=== PATIENT | female | born 1940 | race Caucasian/White ===

== ENCOUNTER → 2016-11-30 | Outpatient (CLI) | payer MEDICARE ==
--- NOTE | 2016-11-30 14:05 | CT ---
EXAMINATION TYPE: CT lumbar spine wo con DATE OF EXAM: 11/30/2016 1:43 PM COMPARISON: Outside lumbar spine MRI August 19, 2015. HISTORY: Patient complains of chronic back pain with left leg weakness. CT DLP: 946 mGycm Automated exposure control for dose reduction was used. FINDINGS: There are 5 lumbar type vertebra identified. Osseous structures are demineralized. There is moderate to severe compression type fracture L1 level centrally redemonstrated. There is moderate height loss or compression fracture superior L3 endplate redemonstrated. There is mild height loss redemonstrated involving L2, L4, and L5 vertebra. There is persistent grade 2 anterolisthesis of L4 on L5 measured 9 mm on sagittal image 23. There is been vertebroplasty involving anterior L5 and S1 vertebra seen fe lt new from MRI. There is advanced disc space narrowing with vacuum disc phenomenon and sclerosis at L5-S1 level. There is multilevel vacuum disc phenomenon. There is moderate to advanced disc space austen rowing L4-L5 level redemonstrated. There is mild multilevel anterior and lateral spurring. There are posterior facet screws L4-L5 level bilaterally redemonstrated. Axial images at T11-T12 level show vacuum disc phenomenon and facet arthropathy. There is mild broad disc bulge seen. There is some mild effacement of anterior and posterior lateral thecal sac on axial image 8. Bilateral neural foramina are felt patent. Axial images at T12-L1 level show vacuum disc phenomenon and mild broad disc bulge mildly effacing an terior thecal sac. There are mild to moderate right greater than left facet degenerative changes with some effacement of posterior lateral thecal sac. Bilateral neural foramina remain patent. Axial images at the L1-L2 level show facet arthropathy effacing posterior lateral thecal sac. There i s mild broad disc bulge mildly effacing anterior thecal sac and causing asymmetric mild left greater than right neural foraminal narrowing. Axial images at the L2-L3 level show moderate broad disc bulge effacing anterior thecal sac. There is mild to moderate facet degenerative changes and ligament flavum hypertrophy effacing posterior later al thecal sac on axial image 34. There is mild to moderate left greater than right anterior-inferior neural foraminal narrowing at this level identified. Axial images at L3-L4 level show vacuum disc phenomenon. There is mild broad disc bulge effacing ante rior thecal sac. There is moderate to severe facet degenerative changes effacing posterior lateral th ecal sac on axial image 42. There is moderate to severe left and mild to moderate right-sided neural foraminal narrowing at this level identified. Axial images at the L4-L5 level show spondylolisthesis. There are bilateral laminectomy defects and s pinous process resection. Spinal canal is fairly well preserved. There is advanced left greater than right neural foraminal narrowing with effacement left L4 nerve strongly suspected on axial image 47 a nd sagittal image 29. Alignment is similar to prior MRI. There is advanced right-sided neural foramin al narrowing also seen with suspected effacement of right L4 nerve though slightly less prominent flo n left side. Axial images at L5-S1 level show facet arthropathy. Spinal canal is fairly well-maintained. There is relative patency of left neural foramina on axial image 55 and sagittal image 31. There is moderate t o severe right-sided neural foraminal narrowing due to broad disc bulging and marginal spurring seen best on sagittal image 20. There is moderate calcified atherosclerotic change of aorta. There is 3.5 cm simple appearing exophyt ic cyst lower pole level right kidney redemonstrated. There is suspected old fracture left posterior 11th rib on coronal image 42. IMPRESSION: DEMINERALIZATION WITH MULTILEVEL COMPRESSION TYPE FRACTURE DEFORMITIES REDEMONSTRATED. INTERVAL VERTE BROPLASTY L5 AND S1 LEVELS IS NOTED. THERE IS STABLE GRADE 2 ANTEROLISTHESIS L4 ON L5. POSTERIOR DECO MPRESSION IS PRESENT. THERE ARE MULTILEVEL DEGENERATIVE CHANGES IN THE LUMBAR SPINE DETAILED ABOVE .
== END | disposition home or self-care (01) ==
LOC: RADCTMAIN 13:12
PROVIDERS: ATTEND Internal Medicine
DX: M48.56XA Collapsed vertebra, not elsewhere classified, lumbar region, initial encounter for fracture (principal); M43.16 Spondylolisthesis, lumbar region; M51.36 Other intervertebral disc degeneration, lumbar region; M51.37 Other intervertebral disc degeneration, lumbosacral region; Z98.890 Other specified postprocedural states
CPT/HCPCS: 72131

== ENCOUNTER → 2017-01-01 | Outpatient (CLI) | payer MEDICARE ==
[2017-01-01 10:12] LABS: Partial Thromboplastin Time 22.5 sec (22.0-30.0); Prothrombin Time 10.1 sec (9.0-12.0)
[2017-01-01 10:16] LABS: CH 31.3; CHCM 32.6; HCT 39.5 % (34.0-46.0); HDW 2.23; MCH 31.7 pg (25.0-35.0); MCHC 32.8 g/dL (31.0-37.0); MCV 96.5 fL (80.0-100.0); Mean Platelet Volume 6.8; RBC 4.09 m/uL (3.80-5.40); RDW 13.7 % (11.5-15.5); WBC 8.6 k/uL (3.8-10.6)
[2017-01-01 10:17] LABS: ALT 29 U/L (9-52); AST 30 U/L (14-36); Alkaline Phosphatase 89 U/L (38-126); Anion Gap 11 mmol/L; Appearance,Urine Cloudy (Clear); Bacteria,Urine Occasional /hpf; Bilirubin,Urine Negative (Negative); Blood Urea Nitrogen 15 mg/dL (7-17); Calcium 10.3 mg/dL (8.4-10.2); Carbon Dioxide 25 mmol/L (22-30); Chloride 106 mmol/L (98-107); Glucose 92 mg/dL (74-99); Glucose,Urine (UA) Negative (Negative); Ketones,Urine Negative (Negative); Leukocyte Esterase,Urine Large (Negative); Mucus,Urine Rare /hpf; Nitrite,Urine Negative (Negative); Non-African American GFR(MDRD) >60 (>60 ml/min/1.73 sqM); PH, Urine 5.5 (5.0-8.0); Particle Count 6056; Potassium 4.2 mmol/L (3.5-5.1); Protein,Urine Negative (Negative); RBC,Urine 2 /hpf (0-5); Sodium 142 mmol/L (137-145); Specific Gravity,Urine 1.013 (1.001-1.035); Squamous Epithelial Cell,Urine 5 /hpf (0-4); Total Bilirubin 0.6 mg/dL (0.2-1.3); Total Protein 7.8 g/dL (6.3-8.2); UA Billing (MACRO vs. MICRO) MICRO; Urobilinogen,Urine <2.0 mg/dL (<2.0); WBC,Urine 66 /hpf (0-5)
== END | disposition home or self-care (01) ==
LOC: LABWHC1 09:03
PROVIDERS: ATTEND Orthopaedic Surgery
DX: Z01.812 Encounter for preprocedural laboratory examination (principal)
CPT/HCPCS: 80053; 81001; 85027; 85610; 85730; 86850; 86900; 86901; 87070

== ENCOUNTER → 2017-01-08 | Outpatient (CLI) | payer MEDICARE ==
--- NOTE | 2017-01-12 10:03 | ECHOF ---
Referral Reason:I48.2 chronic AFib MEASUREMENTS -------- HEIGHT: 154.9 cm WEIGHT: 62.1 kg BP: 134/62 IVSd: 1.2 cm (0.6 - 1.1) LVIDd: 3.3 cm (3.9 - 5.3) LVPWd: 1.1 cm (0.6 - 1.1) IVSs: 1.6 cm LVIDs: 2.1 cm LVPWs: 1.3 cm LAESV Index (A-L): 19.00 ml/m Ao Diam: 2.9 cm (2.0 - 3.7) AV Cusp: 1.9 cm (1.5 - 2.6) LA Diam: 3.2 cm (2.7 - 3.8) MV EXCURSION: 12.148 mm (> 18.000) MV EF SLOPE: 56 mm/s (70 - 150) EPSS: 0.2 cm MV E Max: 0.84 m/s MV DecT: 207 ms MV A Max: 0.92 m/s MV E/A Ratio: 0.91 RAP: 5.00 mmHg RVSP: 30.88 mmHg FINDINGS -------- Sinus rhythm. This was a technically good study. There is borderline concentric left ventricular hypertrophy. Overall left ventricular systolic function is normal with, an EF between 55 - 60 %. The right ventricle is normal in size and function. Normal LA size by volume 22+/-6 ml/m2. The right atrium is normal in size. The aortic valve is trileaflet, and appears structurally normal. No aortic stenosis or regurgitation. The mitral valve leaflets are mildly thickened. Mild mitral regurgitation is present. Mild tricuspid regurgitation present. The right ventricular systolic pressure, as measured by Doppler, is 30.88mmHg. Trace/mild (physiologic) pulmonic regurgitation. The aortic root size is normal. The pericardium is normal. CONCLUSIONS -------- 1. Sinus rhythm. 2. Mild mitral regurgitation is present. 3. Mild tricuspid regurgitation present. 4. The right ventricular systolic pressure, as measured by Doppler, is 30.88mmHg. 5. Trace/mild (physiologic) pulmonic regurgitation. 6. The aortic root size is normal. 7. The pericardium is normal. 8. This was a technically good study. 9. There is borderline concentric left ventricular hypertrophy. 10. Overall left ventricular systolic function is normal with, an EF between 55 - 60 %. 11. The right ventricle is normal in size and function. 12. Normal LA size by volume 22+/-6 ml/m2. 13. The right atrium is normal in size. 14. The aortic valve is trileaflet, and appears structurally normal. No aortic stenosis or regurgitation. 15. The mitral valve leaflets are mildly thickened. BIOLOGY INTERN: Sapna Ghosh RDCS
== END | disposition home or self-care (01) ==
LOC: RADECHMAIN 10:25
PROVIDERS: ATTEND Internal Medicine
DX: I08.1 Rheumatic disorders of both mitral and tricuspid valves (principal); I48.2 Chronic atrial fibrillation; I10 Essential (primary) hypertension
CPT/HCPCS: 93306

== ENCOUNTER 2017-01-12 08:12 | Inpatient (IN) | payer MEDICARE ==
--- NOTE | 2017-01-01 13:55 | CONS ---
DATE OF CONSULTATION: Consultation regarding preop medical evaluation. HISTORY OF PRESENT ILLNESS: This is a 76-year-old female who is scheduled to undergo left hip arthroplasty. The patient suffers from significant degenerative arthritis and is scheduled for the surgery after evaluation. The patient also has a history of previous lumbosacral spine surgery. The patient initially believed pain was from her back but the pain certainly is from the left hip. She pain with any movement of the left hip. Patient otherwise denies any other symptoms. She has no history of any bleeding disorder. No history of any recent infections. At today's evaluation, the patient is noted to be in paroxysmal atrial fibrillation. She has totally declined use of any anticoagulation. She will take aspirin subsequently. The patient's also had atrial fibrillation and she had at that time also refused for her to have any anticoagulation. The patient is a retired nurse. Past medical history significant for basically osteoarthritis and osteoporosis, was told at one time that she has hypothyroidism. She is not on any medication. She has no history of hypertension, diabetes, malignancy, lung disease, liver disease, kidney disease, ulcers, TB, hepatitis. No history of any rheumatic fever, myocardial infarction or CVA. PAST SURGICAL HISTORY: Significant for tonsillectomy, bilateral total knee arthroplasty. She has had an L4-5 surgery. She had right ulnar nerve entrapment release, right elbow surgery and bilateral cataracts. PERSONAL HISTORY: Never a smoker. No alcohol. VACCINATIONS: Pneumonia and flu vaccine in the past. Allergies: ( ) caused fluid retention. Medications include metoprolol 25 mg one-half daily. She is a believer of natural medications and takes Barley [place] and vitamins. SOCIAL HISTORY: Patient is , retired nurse. Exercises by doing ( ) 3 times a week. FAMILY MEDICAL HISTORY: Father at the age of 84. He had coronary artery disease. Mother at the age of 73. She had carcinoma of the breast and dementia. Her brother with 80 with history of Alzheimer's, a brother 77 with history of carcinoma prostate. Sister at age 62. She had oral cancer, a sister 64 with a history of CA of breast. The patient has one daughter 56, a son 55 with diabetes mellitus history and a son 53, in adequate health. REVIEW OF SYSTEMS: NEURO: Denies any headaches, dizziness. No double vision, blurred vision. No symptoms of TIA, syncope, seizures. PSYCH: No anxiety, depression. CARDIAC: Denies chest pain, angina, palpitations. RESPIRATORY: Denies shortness of breath, cough, hemoptysis. GI: Denies any nausea, vomiting, abdominal pain, diarrhea. : No symptoms of dysuria, hematuria, urgency, frequency. EXTREMITIES: Denies pain, edema. CONSTITUTIONAL: No fever or chills. HEMATOLOGIC: No anemia or bleeding disorder. SKIN: No rashes. No open sores. MUSCULOSKELETAL: Pain left hip. CONSTITUTIONAL: No fever, chills, weight gain weight loss. PHYSICAL EXAMINATION: Pleasant female in no distress. Vital signs reveal blood pressure 130/70, pulse rate of 85 per minute and regular, respirations 16, temperature 97.8. HEENT: Normocephalic. NECK: No JVD. Pupils reactive. Nostrils are clear. Oral cavity is moist, ears reveal no drainage. Neck reveals no JVD, carotid bruits, or thyromegaly. CHEST EXAMINATION: Clear to auscultation and percussion. CARDIAC: Intermittently irregular. ABDOMEN: Soft, no palpable masses. Bowel sounds normal. No organomegaly. No abdominal bruits. Breasts examination reveals no masses. No lumps. No tenderness. No axillary lymphadenopathy. EXTREMITIES: Trace edema right ankle. NEUROLOGICALLY: Awake, alert, oriented x3 with well-coordinated movements in both upper and lower extremities with decreased range of motion of the left hip. The biopsy evaluation is pending results. EKG reveals evidence of paroxysmal atrial fib on the EKG except significant baseline artifact. Echocardiogram is pending. ASSESSMENT: 1. Paroxysmal atrial fibrillation. 2. Degenerative arthritis. 3. Hyperlipidemia. PLAN: Continue present medical regimen. The patient's condition discussed with the patient. Prognosis remains guarded. The patient is stable to undergo the planned surgical procedure. Patient recommended not taking any nonsteroidals.
[2017-01-06 15:51] VITALS: BMI 26.7
[~2017-01-12 08:12] MED LIST: ACETAMINOPHEN TAB 500 MG TAB PO ONE; FAMOTIDINE 20 MG/2 ML VIAL IV PRN; HYDROmorphone 1 MG/ML 1 ML SYRINGE IVP PRN; LIDOCAINE 1% 20 ML VIAL (10MG/ML) FOR IV START INTRADERMA PRN; MELOXICAM 7.5 MG TAB PO ONE; MIDAZOLAM 2 MG/2 ML VIAL IV PRN; ONDANSETRON 4 MG/2 ML VIAL IVP PRN; ROPIVACAINE 246.25 MG, EPINEPHrine 0.5 MG, KETOROLAC 30 MG, cloNIDine HCL/PF 80 MCG, WA... MISCELLANE ONE; TRANEXAMIC ACID 1,000 MG in SODIUM CHLORIDE 0.9% 100 ML IVPB ONE; ceFAZolin 2 GM in SODIUM CHLORIDE 0.9% 100 ML IVPB ONE
[2017-01-12] MEDS ORDERED: LIDOCAINE 1% 20 ML VIAL (10MG/ML) FOR IV START INTRADERMA ONE (08:47)
[2017-01-12] MEDS: LACTATED RINGERS 1,000 ML IV SCH (08:47)
[2017-01-12] MEDS ORDERED: fentaNYL (PF) 50 MCG/ML 2 ML AMP ONE (10:19)
[2017-01-12] MEDS ORDERED: MIDAZOLAM 2 MG/2 ML VIAL ONE (10:19)
[2017-01-12] MEDS ORDERED: PROPOFOL 10 MG/ML 20 ML VIAL IV ONE (10:19)
[2017-01-12] MEDS ORDERED: HEPARIN SODIUM,PORCINE 10,000 UNIT/ML 1 ML VIAL ONE (10:19)
[2017-01-12] MEDS ORDERED: SODIUM CHLORIDE 0.9% 100 ML BAG ONE (10:19)
[2017-01-12] MEDS ORDERED: SODIUM CHLORIDE 0.9% IRRIG 1,000 ML BTL IRRIGATION ONE (10:19)
[2017-01-12] MEDS ORDERED: ePHEDrine 50 MG/ML 1 ML AMP ONE (10:19)
[2017-01-12] MEDS ORDERED: ceFAZolin 3,000 MG in SODIUM CHLORIDE 0.9% IRRIGATIO 3,000 ML IRRIGATION ONE (10:19)
[2017-01-12] MEDS ORDERED: TRANEXAMIC ACID 1,000 MG/10 ML VIAL ONE (10:19)
[2017-01-12] MEDS ORDERED: LACTATED RINGERS 1,000 ML IV ONE (11:37)
--- NOTE | 2017-01-12 12:11 | P.OP ---
Date of Procedure: 01/12/17 Preoperative Diagnosis: Severe osteoarthritis of the left hip Postoperative Diagnosis: Severe osteoarthritis of the left hip Procedure(s) Performed: Left total hip arthroplasty with a direct anterior approach Implants: Méndez and nephew Polarstem size 8 standard Méndez [employer] Nephew R3, 3 hole acetabular shell, 50 mm [employer]dez [employer]hew reflection 6.5 mm cancellus screw, 20 mm 2 [employer]dez [employer]hew R3, XLPE 20 acetabular liner [employer]dez [employer]hew Oxinium femoral head 32 m, +0 All components were press-fit. The articulation is ceramic on polyethylene. Anesthesia: spinal Surgeon: Jayme Celestin Infusion Nurse #1: Marly Faith Estimated Blood Loss (ml): 150 (64 mL returned with Cell Saver) Pathology: other (Femoral head) Condition: stable Disposition: PACU Indications for Procedure: After failure of conservative treatment we discussed the surgical and nonsurgical treatment options at length. Patient wishes to proceed with a total hip arthroplasty with a direct anterior approach. Complications specific to this procedure were discussed at length, including but not limited to infection, leg length discrepancy, dislocation, and nerve injury. Patient is aware of all these complications and informed consent was obtained Operative Findings: The operative findings are consistent with severe osteoarthritis of the left hip Description of Procedure: Patient was seen and evaluated in the preoperative area, consent was reviewed, and the surgical site was marked with a skin marker. Patient was then brought to the operating room and given prophylactic antibiotics intravenously. 1 g of Tranexamic acid was also given. A spinal anesthetic was administered by the anesthesia department. The patient was then placed on the [place] table with the bony prominences well-padded. The hip area was then prepped and draped in usual sterile fashion. A universal timeout was then performed, which confirmed the patient's name, surgical site, ALLERGIES, and procedure being performed. Next the incision site was located at 1 cm distal and 1 cm lateral to the anterior superior iliac spine. The skin and subcutaneous tissues were sharply incised. Incision was carefully dissected down to the fascia overlying the tensor fascia adrienne muscle. This fascia was then incised in line with the incision. Next, using blunt finger dissection, the tensor fascia adrienne muscle was dissected off its investing fascia. The muscle was then carefully retracted laterally with a cobra retractor over the lateral neck of the femur. Next, the circumflex vessels were identified and cauterized using the AquaMantis device. The anterior hip capsule was then exposed. The capsule was then opened and an inverted T fashion. Retention sutures were placed in the inferior arms of the capsule. Cobra retractors were then placed intracapsularly. The proximal femur was then visualized. The femoral neck was then osteotomized appropriate level above the lesser trochanter. Small amount of traction was placed with the [place] table. A small wedge of bone was then removed from the remaining femoral head. Next, using a corkscrew femoral head was easily removed from the acetabulum. On gross visual inspection, the femoral head had complete loss of articular cartilage in multiple periarticular osteophytes. Attention was then turned to the acetabulum. the acetabulum was exposed and any remaining labrum was excised. Sequential reaming of the acetabulum was performed using fluoroscopic guidance. When the appropriate size was reached, a trial was then placed. The position and fit of the trial was checked with fluoroscopy. The trial was then removed. Then, using fluoroscopic guidance, the final implant was impacted at 20 of anteversion and 40 of abduction, and fully seated in the acetabulum. 2 screws were then placed in the acetabulum. Again fluoroscopy was used to check position of the screws. Next, the liner was then impacted, with a 20 elevated liner located in the anterior superior quadrant. Component locking was confirmed. Attention was then directed to the femur. With the aid of the [place] table, the femur was externally rotated to approximately 130, extended, and abducted under the opposite leg. A side hook was then placed under the proximal femur, and the side hook elevator was used to elevate the proximal femur. Retractors were then placed. A capsular release was performed, as well as a release of the conjoined tendon, which afforded excellent visualization of the proximal femur. Next, a box osteotome was used to lateralize the proximal femur. A inspector handbag frames was then used to locate the femoral canal. Sequential broaching was then performed with appropriate size which afforded excellent fixation in the proximal femur. A trial was then placed with appropriate head and neck, and the hip was gently reduced with the aid of the [place] table. Fluoroscopy was then used to check position of the components, as well as to ensure equal leg lengths. The hip was then gently dislocated and the trials were then removed. Final implants were then impacted and the hip was again reduced. Final fluoroscopic x-rays confirmed that the components were in anatomic position, as well as equal leg lengths. The hip was also taken through range of motion, and found to be stable. The hip was then copiously irrigated with antibiotic solution with pulsatile lavage. The hip was then irrigated with Irrisept solution. The soft tissues were then injected with a ropivacaine solution, which consisted of 246.25 mg of ropivacaine, 0.5 mg of epinephrine, 30 mg of Toradol, 80 g of clonidine, and 48.45 mL of sterile water, for a total of 100 mL of fluid injected. A second dose of 1 g of Tranexamic acid was also given. the fascia was then closed with 2-0 strata fix suture. The subcutaneous tissue was closed with 3-0 Vicryl. The subcuticular tissue was closed with 3-0 strata fix suture. The skin was then closed with Dermabond tape. The patient was then transferred to the recovery room in stable condition. The office manager executive assistant BESS Casarez was required due to the complexity of surgery, and the need for skilled assistant softball coach for positioning, draping, exposure, retraction, and closure of the wound.
[2017-01-12] MEDS ORDERED: HYDROmorphone 1 MG/ML 1 ML SYRINGE IVP PRN ×3 (12:18)
[2017-01-12] MEDS ORDERED: DIAZEPAM 5 MG TAB PO PRN ×2 (12:18)
[2017-01-12] MEDS ORDERED: hydrOXYzine PAMOATE 25 MG CAP PO PRN (12:18)
[2017-01-12] MEDS ORDERED: ONDANSETRON 4 MG/2 ML VIAL IVP PRN (12:18)
[2017-01-12] MEDS ORDERED: HYDROcodone/APAP 5-325MG 1 EACH TAB PO PRN (12:18)
[2017-01-12] MEDS ORDERED: MAGNESIUM HYDROXIDE 2,400 MG/10 ML CUP PO PRN (12:18)
[2017-01-12] MEDS ORDERED: NALOXONE 0.4 MG/ML 1 ML VIAL IV PRN (12:18)
--- NOTE | 2017-01-12 12:40 | XR ---
EXAMINATION TYPE: XR Hip Limited LT DATE OF EXAM: 01/12/2017 COMPARISON: NONE HISTORY: Postoperative TECHNIQUE: AP single view FINDINGS: Left THR appears anatomic. Postsurgical soft tissue and proximal left femoral changes noted. There are no unexpected radiopaque foreign bodies. There is generalized osteopenia. IMPRESSION: Postoperative study.
--- NOTE | 2017-01-12 13:34 | FL ---
Fluoroscopy INDICATION: Pain FINDINGS: Fluoroscopy time: 42 seconds. Images obtained: 0. IMPRESSIONS: 1. Documentation of fluoroscopy.
[2017-01-12] MEDS: SODIUM CHLORIDE 0.9% 1,000 ML IV SCH (13:42)
--- NOTE | 2017-01-12 17:28 | P.PN ---
Subjective Principal diagnosis: Status post left total hip arthroplasty This 76-year-old female is status post left total hip arthroplasty today. He has significant degenerative arthritis. Patient is doing well. She is already ambulated with help. Denies any headaches dizziness or any nausea vomiting. Pain is very well controlled. She does have a history of paroxysmal atrial fibrillation recently noted on EKG. Echocardiogram revealed good left ventricle function and atria are normal. The patient had declined use of any anticoagulants except for aspirin. She does understand the risk of stroke. REVIEW OF SYSTEMS: Neuro: Denies any headaches dizziness. Psych: Denies anxiety depression feels oriented. Cardiac: Denies chest pain and angina palpitations. Respiratory: Denies shortness of breath cough. GI: Denies nausea vomiting or abdominal pain. No diarrhea or constipation, no bowel movement yet. : Denies dysuria hematuria. Extremities: Denies pain. No edema. Constitutional: No fever, chills. Objective - Vital Signs Vital signs: Vital Signs Temp 97.1 F L 01/12/17 13:15 Pulse 78 01/12/17 14:45 Resp 16 01/12/17 13:15 BP 91/47 01/12/17 14:45 Pulse Ox 99 01/12/17 13:15 Intake & Output 01/11/17 01/12/17 01/12/17 18:59 06:59 18:59 Intake Total 4500 Output Total 150 Balance 4350 Intake: IV 4500 Output: Estimated Blood Loss 150 Other: # Voids 0 PHYSICAL EXAMINATION: Cooperative, at present in no acute distress. HEENT: Neck supple. No JVD. Chest: Clear to auscultation percussion. Cardiac: Normal S1-S2 no gallops no murmur . Abdomen: Soft bowel sounds present. Extremities: No edema left hip has a dressing Neurologically: Awake, alert, oriented with well-coordinated movements upper extremities. Assessment and Plan Plan: ASSESSMENT: 1. History of paroxysmal atrial fibrillation. 2. Degenerative arthritis status post left hip arthroplasty. 3. Recent urinary tract infection. PLAN: Continue present medical regimen with metoprolol. Patient at present is clinically stable.
[2017-01-12] MEDS: ceFAZolin 2 GM in SODIUM CHLORIDE 0.9% 100 ML IVPB SCH ×2 (17:45→23:48)
[2017-01-12] MEDS: SENNOSIDES-DOCUSATE SODIUM 1 EACH TAB PO SCH (20:38)
[2017-01-12] MEDS: ASPIRIN 325 MG TAB PO SCH (20:38)
[2017-01-13 02:22] VITALS: RESP 16
[2017-01-13 07:38] LABS: Basophils % (A) 0 %; CH 31.9; CHCM 34.4; Eosinophils # (A) 0.1 k/uL (0-0.7); Eosinophils % (A) 1 %; HCT 26.8 % (34.0-46.0); HDW 2.26; Luc # (Auto) 0.16; Luc % (Auto) 2; Lymphocytes # (A) 0.9 k/uL (1.0-4.8); Lymphocytes % (A) 10 %; MCH 32.2 pg (25.0-35.0); MCHC 34.5 g/dL (31.0-37.0); MCV 93.3 fL (80.0-100.0); Monocytes # (A) 0.4 k/uL (0-1.0); Monocytes % (A) 5 %; Neutrophils # (A) 7.4 k/uL (1.3-7.7); Neutrophils % (A) 82 %; RBC 2.87 m/uL (3.80-5.40); RDW 12.9 % (11.5-15.5); WBC (Perox) 9.68
[2017-01-13 07:40] LABS: HGB 9.2 gm/dL (11.4-16.0)
[2017-01-13] MEDS: MELOXICAM 7.5 MG TAB PO SCH (07:45)
[2017-01-13] MEDS: ASPIRIN 325 MG TAB PO SCH ×2 (07:45→21:17)
[2017-01-13] MEDS: HYDROcodone/APAP 5-325MG 1 EACH TAB PO PRN ×3 (07:45→19:51)
[2017-01-13] MEDS: LACTATED RINGERS 1,000 ML IV SCH (08:14)
[2017-01-13] MEDS: SODIUM CHLORIDE 0.9% 1,000 ML IV SCH ×2 (08:14→22:15)
--- NOTE | 2017-01-13 13:12 | P.PN ---
Subjective Principal diagnosis: Status post total left hip arthoplasty This is a well-appearing 76 year old female who is status post total left hip arthroplasty. This is post operative day #1. Patient was seen and evaluated at bedside with Dr. Jayme Celestin. Patient states she has been up and walking and confirms that her pain is under control. Patient has no new complaints today. Objective - Vital Signs Vital signs: Vital Signs Temp 99.3 F 01/13/17 07:00 Pulse 89 01/13/17 07:00 Resp 16 01/13/17 07:00 BP 101/61 01/13/17 07:00 Pulse Ox 97 01/13/17 07:00 Intake & Output 01/12/17 01/13/17 01/13/17 18:59 06:59 18:59 Intake Total 4500 1140 240 Output Total 150 600 Balance 4350 540 240 Intake: IV 4500 Intake, IV Titration 890 Amount Sodium Chloride 0.9% 1, 690 000 ml @ 60 mls/hr IV . [id number] KATHERINE Rx#:[id number] ceFAZolin 2 gm In Sodium 200 Chloride 0.9% 100 ml @ 100 mls/hr IVPB Q8HR KATHERINE Rx#:[id number] Oral 250 240 Output: Urine 600 Estimated Blood Loss 150 Other: Voiding Method Toilet Toilet # Voids 0 3 2 - Exam Patient is in no acute distress and is alert and oriented x3. Vital signs are stable. Patient's incision with dressing intact and no drainage present. Calf is soft and nontender. Patient has full foot and ankle motion. Neurovascular status is intact. - Labs CBC & Chem 7: 01/13/17 06:32 Labs: Abnormal Lab Results - Last 24 Hours (Table) 01/13/17 Range/Units 06:32 RBC 2.87 L (3.80-5.40) m/uL Hgb 9.2 L D (11.4-16.0) gm/dL Hct 26.8 L (34.0-46.0) % Lymphocytes # 0.9 L (1.0-4.8) k/uL Assessment and Plan (1) Primary osteoarthritis of left hip Status: Acute (2) History of total left hip arthroplasty Status: Acute Plan: Continue routine postoperative care. Weightbearing as tolerated. Continue anticoagulation with aspirin. Likely discharge home tomorrow.
[2017-01-13] MEDS: METOPROLOL TARTRATE 25 MG TAB PO SCH (14:10)
[2017-01-13] MEDS: SENNOSIDES-DOCUSATE SODIUM 1 EACH TAB PO SCH (21:17)
[2017-01-14] MEDS: HYDROcodone/APAP 5-325MG 1 EACH TAB PO PRN ×3 (04:07→15:54)
[2017-01-14] MEDS: LACTATED RINGERS 1,000 ML IV SCH (05:02)
--- NOTE | 2017-01-14 06:51 | PN ---
CHIEF COMPLAINT: Re-evaluation. HISTORY OF PRESENT ILLNESS: A 76-year-old female status post left hip arthroplasty. She is doing relatively well. She feels well today. She does have some pain in the left hip compared to yesterday. The patient, however, has ambulated to the bathroom and back. REVIEW OF SYSTEMS: NEURO: Denies any headaches, dizziness. PSYCH: No anxiety, depression. CARDIAC: No chest pain, angina, palpitation. RESPIRATORY: No shortness of breath, cough. GI: No nausea, vomiting, abdominal pain. No bowel movement. : No symptoms of dysuria, hematuria. Does have some frequency. EXTREMITIES: Denies edema. Has pain in the left hip area at the site of surgery. CONSTITUTIONAL: No fever or chills. PHYSICAL EXAMINATION: Pleasant female in no distress. Vital signs revealed temperature 99.3, pulse 89, respirations 16, blood pressure 101/61. HEENT: Normocephalic. NECK: No JVD. Chest is clear to auscultation, pulse ox 97%. CARDIAC: Normal S1, S2 with no gallops, murmurs. ABDOMEN: Soft. Bowel sounds present. EXTREMITIES: No edema. Good pulses, both upper and lower extremities. NEUROLOGIC: Awake, alert, oriented x3 with well coordinated movements in both upper extremities. LABORATORY ASSESSMENT: CBC which reveals a hemoglobin 9.2. ASSESSMENT: 1. Anemia secondary to acute blood loss. 2. Paroxysmal atrial fibrillation. 3. Degenerative arthritis, status post left hip. PLAN: The patient is stable. Continue present medical regimen. The patient's condition discussed with the patient. Prognosis guarded.
[2017-01-14 08:03] VITALS: BP 106/55; PULSE 100; TEMP 97.9
[2017-01-14] MEDS: METOPROLOL TARTRATE 25 MG TAB PO SCH (08:16)
[2017-01-14] MEDS: ASPIRIN 325 MG TAB PO SCH (08:16)
[2017-01-14] MEDS: MELOXICAM 7.5 MG TAB PO SCH (08:16)
--- NOTE | 2017-01-14 08:58 | P.DS ---
Providers Date of admission: 01/12/17 08:12 Expected date of discharge: 01/14/17 Attending physician: Jayme Celestin Consults: 01/12/17 12:18 Consult Physician Routine Consulting Provider: Madhav Lanza Consult Reason/Comments: medical management Do you want consulting provider notified?: Yes Primary care physician: Madhav Lanza - Discharge Diagnosis(es) (1) Primary osteoarthritis of left hip Current Visit: Yes Status: Acute (2) History of total left hip arthroplasty Current Visit: Yes Status: Acute Hospital Course: This is a 76-year-old female with known history of degenerative arthritis of the left hip. The patient presents for evaluation. After discussion and consideration patient elects to proceed with total hip arthroplasty. The patient is seen preoperatively by Dr. Celestin and cleared for surgery. Patient is admitted to [facility] on 01/12/2017 for total hip arthroplasty. The procedures performed without complication or sequelae. The patient is doing well postoperatively. Labs and vital signs are stable on day of discharge. On day of discharge patient's hip incision is healing well. There is minimal erythema. There is no drainage noted at this time. There is minimal soft tissue swelling to the hip and thigh. Patient has full foot and ankle motion without difficulty or pain. Neurovascular status to the left lower extremity is intact. Patient is discharged home in good condition.Please see med rec for accurate list of home medications. Plan - Discharge Summary New Discharge Prescriptions: New Aspirin 325 mg PO BID #60 tab HYDROcodone/APAP 5-325MG [[place] 5-325] 1 - 2 tab PO Q4-6H PRN #90 tab PRN Reason: Pain Sennosides-Docusate Sodium [Senokot-S] 1 tab PO BID #60 tablet No Action Metoprolol Tartrate [Lopressor] 25 mg PO QAM L.acidoph,Paracasei, B.lactis [Probiotic] 1 cap PO DAILY Acetaminophen [Tylenol] 325 mg PO Q6H PRN PRN Reason: Pain Acetaminophen/Diphenhydramine [Tylenol PM Extra Strength] 1 tab PO HS PRN PRN Reason: Pain/Sleep Coconut Oil 3,000 mg PO DAILY Ciprofloxacin HCl [Cipro] 500 mg PO Q12HR Discharge Medication List Acetaminophen [Tylenol] 325 mg PO Q6H PRN 01/06/17 [History] Acetaminophen/Diphenhydramine [Tylenol PM Extra Strength] 1 tab PO HS PRN [History] Coconut Oil 3,000 mg PO DAILY 01/06/17 [History] L.acidoph,Paracasei, B.lactis [Probiotic] 1 cap PO DAILY 01/06/17 [History] Metoprolol Tartrate [Lopressor] 25 mg PO QAM 01/06/17 [History] Ciprofloxacin HCl [Cipro] 500 mg PO Q12HR 01/12/17 [History] Aspirin 325 mg PO BID #60 tab 01/14/17 [Rx] HYDROcodone/APAP 5-325MG [[place] 5-325] 1 - 2 tab PO Q4-6H PRN #90 tab 01/14/17 [ Rx] Sennosides-Docusate Sodium [Senokot-S] 1 tab PO BID #60 tablet 01/14/17 [Rx] Follow up Appointment(s)/Referral(s): [facility], [NON-STAFF] - As Needed Jayme Celestin DO [Doctor of Osteopathic Medicine] - 2 Weeks Activity/Diet/Wound Care/Special Instructions: Weightbearing as tolerated with walker May shower after 2 days if no drainage from the incision Follow-up with [facility] in 2 weeks with any questions or concerns Discharge Disposition: HOME WITH HOME HEALTH SERVICES
--- NOTE | 2017-01-14 23:34 | PN ---
CHIEF COMPLAINT: Re-evaluation. HISTORY OF PRESENT ILLNESS: This lady is status post left total hip arthroplasty. She is doing relatively well. Her pain is better today. REVIEW OF SYSTEMS: NEURO: Denies any headaches, dizziness. PSYCH: No anxiety. CARDIAC: No chest pain, angina, palpitation. RESPIRATORY: No shortness breath, cough, hemoptysis. GI: No nausea, vomiting, abdominal pain, diarrhea. : No symptoms of dysuria, hematuria, urgency, frequency. EXTREMITIES: Denies pain except to the left hip. No edema. CONSTITUTIONAL: No fever or chills. PHYSICAL EXAMINATION: Pleasant female in no distress. VITAL SIGNS: Temperature 97.9, pulse 100, respiration 16, blood pressure 106/55. HEENT: Normocephalic. NECK: Supple. No JVD. Chest is clear to auscultation and percussion. CARDIAC: Normal S1, S2 with no gallops or murmurs. ABDOMEN: Soft. Bowel sounds present. EXTREMITIES: No edema. No tenderness. NEUROLOGIC: Awake, alert, oriented with well-coordinated movements, upper extremities. LABORATORY ASSESSMENT: CBC yesterday with hemoglobin 9.2. ASSESSMENT: 1. Anemia secondary to acute blood loss. 2. History of paroxysmal atrial fibrillation with refusal of anticoagulation. 3. Degenerative joint disease. PLAN: Continue present medical regimen. Patient's condition is stable. Discussed with the patient. Prognosis guarded. Potential discharge in the next 24 to 48 hours.
== END 2017-01-14 18:26 | disposition home health service (06) | DRG 470 ==
LOC: 2ORMAIN 08:12 → 3SUR 12:12
PROVIDERS: ADMIT Orthopaedic Surgery; ATTEND Orthopaedic Surgery
PROC: 0SRB04A Replacement of Left Hip Joint with Ceramic on Polyethylene Synthetic Substitute, Uncemented, Open Approach (ICD-10-PCS; principal; 2017-01-12 09:50)
DX: M16.12 Unilateral primary osteoarthritis, left hip (principal); D62 Acute posthemorrhagic anemia; I48.0 Paroxysmal atrial fibrillation; E03.9 Hypothyroidism, unspecified; E78.5 Hyperlipidemia, unspecified; M81.0 Age-related osteoporosis without current pathological fracture; Z96.653 Presence of artificial knee joint, bilateral; Z82.49 Family history of ischemic heart disease and other diseases of the circulatory system
CPT/HCPCS: 73501; 85025; 86850; 86891; 86900; 86901; 88300

== ENCOUNTER → 2020-01-23 | Outpatient (CLI) | payer MEDICARE ==
[2020-01-23 12:51] LABS: HCT 36.5 % (34.0-46.0); HGB 11.5 gm/dL (11.4-16.0); MCH 29.6 pg (25.0-35.0); MCHC 31.6 g/dL (31.0-37.0); MCV 93.9 fL (80.0-100.0); Mean Platelet Volume 7.6; Platelet Count 362 k/uL (150-450); RBC 3.89 m/uL (3.80-5.40); WBC 9.2 k/uL (3.8-10.6)
[2020-01-23 13:01] LABS: Albumin 4.1 g/dL (3.5-5.0); Calcium 9.8 mg/dL (8.4-10.2); Potassium 4.4 mmol/L (3.5-5.1); Total Bilirubin 0.2 mg/dL (0.2-1.3); Total Protein 7.2 g/dL (6.3-8.2)
[2020-01-23 13:02] LABS: Appearance,Urine Cloudy (Clear); Bacteria,Urine Occasional /hpf; Bilirubin,Urine Negative (Negative); Blood,Urine Negative (Negative); Color,Urine Yellow; Glucose,Urine (UA) Negative (Negative); Hyaline Casts,Urine 18 /lpf (0-2); Ketones,Urine Negative (Negative); Leukocyte Esterase,Urine Large (Negative); Mucus,Urine Occasional /hpf; Nitrite,Urine Negative (Negative); PH, Urine 5.5 (5.0-8.0); Protein,Urine Trace (Negative); RBC,Urine 6 /hpf (0-5); Specific Gravity,Urine 1.021 (1.001-1.035); Squamous Epithelial Cell,Urine 10 /hpf (0-4); Urobilinogen,Urine <2.0 mg/dL (<2.0); WBC,Urine >182 /hpf (0-5)
[2020-01-23 13:10] LABS: INR 0.9 (<1.2); Partial Thromboplastin Time 22.7 sec (22.0-30.0); Prothrombin Time 9.6 sec (9.0-12.0)
== END | disposition home or self-care (01) ==
LOC: LABPAT 11:47
PROVIDERS: ATTEND Orthopaedic Surgery
DX: Z01.818 Encounter for other preprocedural examination (principal); Z51.81 Encounter for therapeutic drug level monitoring; Z79.01 Long term (current) use of anticoagulants
CPT/HCPCS: 80053; 81001; 85027; 85610; 85730; 86850; 86900; 86901; 87070

== ENCOUNTER 2020-01-30 11:49 | Day surgery (SDC) | payer MEDICARE ==
[2020-01-29 11:28] VITALS: BMI 27.8
[~2020-01-30 11:49] MED LIST changes: -FAMOTIDINE 20 MG/2 ML VIAL IV PRN; +GABAPENTIN 300 MG CAP PO ONE; +HYDROmorphone 0.5 MG/0.5 ML SYRINGE IVP PRN; -HYDROmorphone 1 MG/ML 1 ML SYRINGE IVP PRN; -LIDOCAINE 1% 20 ML VIAL (10MG/ML) FOR IV START INTRADERMA PRN; -MIDAZOLAM 2 MG/2 ML VIAL IV PRN; +ONDANSETRON 4 MG/2 ML VIAL IVP ONE; -ONDANSETRON 4 MG/2 ML VIAL IVP PRN; -ROPIVACAINE 246.25 MG, EPINEPHrine 0.5 MG, KETOROLAC 30 MG, cloNIDine HCL/PF 80 MCG, WA... MISCELLANE ONE; -ceFAZolin 2 GM in SODIUM CHLORIDE 0.9% 100 ML IVPB ONE
[2020-01-30] MEDS ORDERED: ONDANSETRON 4 MG/2 ML VIAL IVP PRN (11:55)
[2020-01-30] MEDS ORDERED: HYDROcodone/APAP 5-325MG 1 EACH TAB PO PRN (11:55)
[2020-01-30] MEDS ORDERED: MAGNESIUM HYDROXIDE 2,400 MG/10 ML CUP PO PRN (11:55)
[2020-01-30] MEDS ORDERED: HYDROmorphone 0.5 MG/0.5 ML SYRINGE IVP PRN ×3 (11:55)
[2020-01-30] MEDS ORDERED: NALOXONE 0.4 MG/ML 1 ML VIAL IV PRN (11:55)
[2020-01-30] MEDS ORDERED: ONDANSETRON 4 MG/2 ML VIAL ONE (12:17)
[2020-01-30] MEDS ORDERED: ACETAMINOPHEN TAB 500 MG TAB ONE (12:17)
[2020-01-30] MEDS: LACTATED RINGERS 1,000 ML IV SCH (12:19)
[2020-01-30] MEDS ORDERED: DEXAMETHASONE SOD PHOSPHATE 10 MG/ML 1 ML VIAL IV ONE (12:20)
[2020-01-30] MEDS ORDERED: MIDAZOLAM 2 MG/2 ML VIAL ONE (13:41)
[2020-01-30] MEDS ORDERED: fentaNYL (PF) 50 MCG/ML 2 ML AMP ONE (13:41)
[2020-01-30] MEDS ORDERED: PROPOFOL 10 MG/ML 20 ML VIAL IV ONE (13:41)
[2020-01-30] MEDS ORDERED: TRANEXAMIC ACID 1,000 MG/10 ML VIAL ONE (13:41)
[2020-01-30] MEDS ORDERED: SODIUM CHLORIDE 0.9% 100 ML BAG ONE (13:41)
[2020-01-30] MEDS ORDERED: PHENYLEPHRINE-0.9% NACL SYG 1 MG/10 ML SYRINGE ONE (13:41)
[2020-01-30] MEDS ORDERED: SODIUM CHLORIDE 0.9% IRRIG 1,000 ML BTL IRRIGATION ONE (13:41)
[2020-01-30] MEDS ORDERED: HEPARIN SODIUM,PORCINE 10,000 UNIT/ML 1 ML VIAL ONE (13:41)
[2020-01-30] MEDS: ROPIVACAINE 246.25 MG, EPINEPHrine 0.5 MG, KETOROLAC 30 MG, cloNIDine HCL/PF 80 MCG, WA... MISCELLANE ONE ×10 (14:22→14:53)
[2020-01-30] MEDS ORDERED: ceFAZolin 3,000 MG in SODIUM CHLORIDE 0.9% IRRIGATIO 3,000 ML IRRIGATION ONE (14:23)
--- NOTE | 2020-01-30 15:13 | P.OP ---
Date of Procedure: 01/30/20 Preoperative Diagnosis: Severe osteoarthritis right hip Postoperative Diagnosis: Severe osteoarthritis right hip Procedure(s) Performed: Right total hip arthroplasty with a direct anterior approach Implants: Méndez and nephew Polarstem size 6 standard Méndez [employer] Nephew R3, 3 hole acetabular shell, 50 mm Méndez [employer] Nephew reflection 6.5 mm cancellus screw, 20 mm 2 Méndez [employer] Nephew R3, XLPE 20 acetabular liner Méndez [employer] Nephew Oxinium femoral head 32 m, +0 All components were press-fit. The articulation is Oxinium on polyethylene. Anesthesia: spinal Surgeon: Jayme Celestin Medical Record Librarians Teacher #1: Marly Mendoza Estimated Blood Loss (ml): 100 Pathology: other (Femoral head) Condition: stable Disposition: PACU Indications for Procedure: After failure of conservative treatment we discussed the surgical and nonsurgical treatment options at length. Patient wishes to proceed with a total hip arthroplasty with a direct anterior approach. Complications specific to this procedure were discussed at length, including but not limited to infection, leg length discrepancy, dislocation, and nerve injury. Covid-19 was also discussed at length with the patient, and they are aware of the current policies and procedures. The patient was given the option of delaying surgery, but they elect to proceed knowing these risks. Patient is aware of all these complications and informed consent was obtained Operative Findings: The operative findings are consistent with severe osteoarthritis of the right hip Description of Procedure: Patient was seen and evaluated in the preoperative area, consent was reviewed, and the surgical site was marked with a skin marker. Patient was then brought to the operating room and given prophylactic antibiotics intravenously. 1 g of Tranexamic acid was also given. A spinal anesthetic was administered by the anesthesia department. The patient was then placed on the [place] table with the bony prominences well-padded. The hip area was then prepped and draped in usual sterile fashion. A universal timeout was then performed, which confirmed the patient's name, surgical site, ALLERGIES, and procedure being performed. Next the incision site was located at 1 cm distal and 1 cm lateral to the anterior superior iliac spine. The skin and subcutaneous tissues were sharply incised. Incision was carefully dissected down to the fascia overlying the tensor fascia adrienne muscle. This fascia was then incised in line with the incision. Next, using blunt finger dissection, the tensor fascia adrienne muscle was dissected off its investing fascia. The muscle was then carefully retracted laterally with a cobra retractor over the lateral neck of the femur. Next, the circumflex vessels were identified and cauterized using the AquaMantis device. The anterior hip capsule was then exposed. The capsule was then opened and an inverted T fashion. Cobra retractors were then placed intracapsularly. The proximal femur was then visualized. The femoral neck was then osteotomized appropriate level above the lesser trochanter. Small amount of traction was placed with the [place] table. A small wedge of bone was then removed from the remaining femoral head. Next, using a corkscrew femoral head was easily removed from the acetabulum. On gross visual inspection, the femoral head had complete loss of articular cartilage in multiple periarticular osteophytes. Attention was then turned to the acetabulum. the acetabulum was exposed and any remaining labrum was excised. Sequential reaming of the acetabulum was performed using fluoroscopic guidance. When the appropriate size was reached, a trial was then placed. The position and fit of the trial was checked with fluoroscopy. The trial was then removed. Then, using fluoroscopic guidance, the final implant was impacted at 20 of anteversion and 40 of abduction, and fully seated in the acetabulum. 2 screws were then placed in the acetabulum. Again fluoroscopy was used to check position of the screws. Next, the liner was then impacted, with a 20 elevated liner located in the anterior superior quadrant. Component locking was confirmed. Attention was then directed to the femur. With the aid of the [place] table, the femur was externally rotated to approximately 130, extended, and abducted under the opposite leg. A side hook was then placed under the proximal femur, and the side hook elevator was used to elevate the proximal femur. Retractors were then placed. A capsular release was performed, as well as a release of the conjoined tendon, which afforded excellent visualization of the proximal femur. Next, a box osteotome was used to lateralize the proximal femur. A snath handle assembler was then used to locate the femoral canal. Sequential broaching was then performed with appropriate size which afforded excellent fixation in the proximal femur. A trial was then placed with appropriate head and neck, and the hip was gently reduced with the aid of the [place] table. Fluoroscopy was then used to check position of the components, as well as to ensure equal leg lengths. The hip was then gently dislocated and the trials were then removed. Final implants were then impacted and the hip was again reduced. Final fluoroscopic x-rays confirmed that the components were in anatomic position, as well as equal leg lengths. The hip was also taken through range of motion, and found to be stable. The hip was then copiously irrigated with antibiotic solution with pulsatile lavage. The hip was then irrigated with Irrisept solution. The soft tissues were then injected with a ropivacaine solution, which consisted of 246.25 mg of ropivacaine, 0.5 mg of epinephrine, 30 mg of Toradol, 80 g of clonidine, and 48.45 mL of sterile water, for a total of 100 mL of fluid injected. A second dose of 1 g of Tranexamic acid was also given. the fascia was then closed with 2-0 strata fix suture. The subcutaneous tissue was closed with 3-0 Vicryl. The subcuticular tissue was closed with 3-0 strata fix suture. The skin was then closed with Dermabond glue and a sterile silver dressing. The patient was then transferred to the recovery room in stable condition. The specimen preparation assistant BESS Valero was required due to the complexity of surgery, and the need for skilled surgical instruments inspector for positioning, draping, exposure, retraction, and closure of the wound.
--- NOTE | 2020-01-30 16:16 | XR ---
Fluoroscopy History: RT ANT HIP REPLACEMENT Fluoroscopic guidance provided for right anterior hip replacement.
[2020-01-30] MEDS: SODIUM CHLORIDE 0.9% 1,000 ML IV SCH ×2 (17:55→23:21)
[2020-01-30] MEDS ORDERED: SENNOSIDES-DOCUSATE SODIUM 1 EACH TAB PO SCH (21:00)
--- NOTE | 2020-01-30 22:32 | P.CONS ---
History of Present Illness - Reason for Consult Consult date: 01/30/20 medical management post op Requesting physician: Jayme Celestin - Chief Complaint right hip pain - History of Present Illness 79 year old female with hypothyroidism and osteoarthritis patient comes in for scheduled right hip arthroplasty due to severe OA. patient has failed conservative measures and pain became untolerable interfering with her daily activities of living and disturbing her sleep. patient tolerated procedure well, denies any chest pain or trouble breathing, tolerated PO intake. pain is well controlled. she denies any cardiac history, denies taking any medications at home other than Synthroid. she recently finished a course of antibiotics for UTI, currently denies any urinary symptoms Review of Systems Pertinent positives as noted in HPI. All other systems were reviewed and are negative Past Medical History Past Medical History: Hearing Disorder / Deafness, Osteoarthritis (OA), Thyroid Disorder Additional Past Medical History / Comment(s): "fast pulse", varicose veins, hearing aids. c/o constipation after last hip surgery. On po AB Rx since 01/26/20 for UTI. History of Any Multi-Drug Resistant Organisms: None Reported Past Surgical History: Back Surgery, Bladder Surgery, Hysterectomy, Joint Replacement, Tonsillectomy Additional Past Surgical History / Comment(s): ariel knee replacement, rt elbow surgery, Back surg w/ plate and screws L5, surgery on tailbone, ariel cataracts. Total Lt hip. Past Anesthesia/Blood Transfusion Reactions: Motion Sickness Additional Past Anesthesia/Blood Transfusion Reaction / Comm: motion sickness as child Past Psychological History: No Psychological Hx Reported Smoking Status: Never smoker Past Alcohol Use History: None Reported Past Drug Use History: None Reported - Past Family History Mother Family Medical History: Cancer Additional Family Medical History / Comment(s): breast cancer Sister(s) Family Medical History: Cancer Additional Family Medical History / Comment(s): breast, bone; another sister had tongue cancer Brother(s) Family Medical History: Cancer Additional Family Medical History / Comment(s): prostate cancer Medications and Allergies Home Medications Medication Instructions Recorded Confirmed Type Aspirin 325 mg PO DIRECTED PRN 01/29/20 01/29/20 History Levothyroxine Sodium [Synthroid] 25 mcg PO SUTUTHSA 01/29/20 01/29/20 History Levothyroxine Sodium [Synthroid] 37.5 mcg PO MOWEFR 01/29/20 01/29/20 History Tylenol (Unknown Dose) 1 - 2 tab PO DIRECTED PRN 01/29/20 History Allergies Allergy/AdvReac Type Severity Reaction Status Date / Time Sulfa (Sulfonamide Allergy Swelling Verified 01/30/20 12:11 Antibiotics) codeine AdvReac Itching Verified 01/30/20 12:11 morphine AdvReac Itching Verified 01/30/20 12:11 Physical Exam Vitals: Vital Signs Temp Pulse Pulse Resp BP Pulse Ox 01/30/20 19:10 98.4 F 91 14 119/61 94 L 01/30/20 18:15 80 142/61 99 01/30/20 18:00 85 127/66 98 01/30/20 17:45 80 113/64 97 01/30/20 17:15 97.5 F L 77 18 127/66 97 01/30/20 16:45 73 18 120/58 97 01/30/20 16:30 72 16 114/55 97 01/30/20 16:15 70 16 113/56 98 01/30/20 16:00 77 16 103/57 98 01/30/20 15:45 71 18 93/49 98 01/30/20 15:31 97.3 F L 76 14 87/58 96 01/30/20 12:08 97.9 F 86 17 178/89 98 01/30/20 05:30 82 156/70 98 Intake and Output 01/30/20 01/30/20 01/30/20 06:59 14:59 22:59 Intake Total 551 1286 Output Total 600 Balance 551 686 Intake: IV 551 1050 Oral 236 Output: Urine 500 Estimated Blood Loss 100 Other: Weight 68.946 kg Constitutional: No acute distress, conversant, pleasant Eyes: Anicteric sclerae, moist conjunctiva, Pupils equal round reactive to light ENMT: NC/AT Oropharynx clear, no erythema, or exudates Neck: Supple, FROM, no masses, or JVD No carotid bruits No thyromegaly Lungs: Clear to auscultation Clear to percussion Normal respiratory effort, no accessory muscle use Cardiovascular: Heart regular in rate and rhythm, No murmurs, gallops, or rubs No peripheral edema Abdominal: Soft Nontender, no guarding, rebound or rigidity Abdomen moving with respiration Normoactive bowel sounds No hepatomegaly, No splenomegaly No palpable mass No abdominal wall hernia noted Skin: Normal temperature, tone, texture, turgor No induration No subcutaneous nodules No rash, lesions No ulcers Extremities: No digital cyanosis No clubbing Pedal pulses intact and symmetrical Radial pulses intact and symmetrical No calf tenderness Psychiatric: Alert and oriented to person, place and time Appropriate affect fair judgement Neuro Muscles Strength 5/5 in bilateral upper extremities and left lower extremity (limited exam over right lower extremity due to surgery ) Sensation to light touch grossly present throughout Cranial nerves II-XII grossly intact No focal sensory deficits Lymphatics: no palpable cervical or supraclavicular , or inguinal lymph no mikey Assessment and Plan Assessment: Hypothyroid Continue with levothyroxine Outpatient follow-up with PCP Severe degenerative joint disease of the right hip status post total hip arthroplasty postoperative day 0 Management per orthopedics, planning on aspirin twice a day for DVT prophylaxis for one-month postop Pain control PT/OT full code follow up CBC and BMP in AM Thank you for allowing us to participate in the care of this patient. Do not hesitate to contact us with questions. Someone can be reached from the [facility] hospitalist group at all hours of the day at [phone].
[2020-01-30] MEDS ORDERED: MELATONIN 3 MG TABLET PO SCH (22:45)
[2020-01-30] MEDS: ASPIRIN 325 MG TAB PO SCH (23:17)
[2020-01-31 01:10] VITALS: TEMP 97.3
[2020-01-31] MEDS: HYDROcodone/APAP 5-325MG 1 EACH TAB PO PRN ×2 (03:13→10:15)
[2020-01-31] MEDS: LACTATED RINGERS 1,000 ML IV SCH (06:02)
[2020-01-31] MEDS ORDERED: LEVOTHYROXINE 25 MCG TAB PO SCH (06:30)
[2020-01-31 06:45] LABS: Basophils % (A) 0 %; Eosinophils % (A) 0 %; HCT 31.3 % (34.0-46.0); HGB 10.4 gm/dL (11.4-16.0); Lymphocytes # (A) 1.5 k/uL (1.0-4.8); Lymphocytes % (A) 12 %; MCH 31.2 pg (25.0-35.0); MCV 94.5 fL (80.0-100.0); Mean Platelet Volume 7.7; Monocytes # (A) 0.8 k/uL (0-1.0); Monocytes % (A) 6 %; Neutrophils # (A) 10.3 k/uL (1.3-7.7); Neutrophils % (A) 81 %; Platelet Count 301 k/uL (150-450); RBC 3.32 m/uL (3.80-5.40); RDW 13.1 % (11.5-15.5); WBC 12.7 k/uL (3.8-10.6)
[2020-01-31 06:55] LABS: Calcium 8.9 mg/dL (8.4-10.2); Potassium 4.9 mmol/L (3.5-5.1)
[2020-01-31 07:12] VITALS: BP 109/56; PULSE 63; RESP 16
--- NOTE | 2020-01-31 08:55 | P.DS ---
Providers Expected date of discharge: 01/31/20 Attending physician: Jayme Celestin Consults: 01/30/20 11:55 Consult Physician Routine Consulting Provider: Madhav Lanza Consult Reason/Comments: medical management Do you want consulting provider notified?: Yes Primary care physician: Madhav Lanza - Discharge Diagnosis(es) (1) Osteoarthritis of right hip Current Visit: Yes Status: Acute (2) S/P total hip arthroplasty Current Visit: Yes Status: Acute Hospital Course: This is a 79-year-old female with known history of degenerative arthritis of the right hip. The patient presents for evaluation. After discussion and consideration patient elects to proceed with total hip arthroplasty. The patient is seen preoperatively by Dr. Celestin and medically cleared for surgery by their primary care physician. Patient is admitted to [facility] on 01/30/2020 for total hip arthroplasty. The procedures performed without complication or sequelae. The patient is doing well postoperatively. Labs and vital signs are stable on day of discharge. On day of discharge patient's hip incision is healing well. There is minimal erythema. There is no drainage noted at this time. There is minimal soft tissue swelling to the hip and thigh. Patient has full foot and ankle motion without difficulty or pain. Calf is soft and nontender to palpation. Neurovascular status to the right lower extremity is intact. Patient is disch arged home in good condition. Opioid start talking form is reviewed and signed at patient bedside. Please see med rec for accurate list of home medications. Plan - Discharge Summary Discharge Rx Participant: No New Discharge Prescriptions: New Aspirin 325 mg PO BID #60 tab HYDROcodone/APAP 5-325MG [[place] 5-325] 1 tab PO Q6HR PRN #30 tab PRN Reason: Pain Sennosides [Senokot] 2 tab PO DAILY PRN #60 tablet PRN Reason: Constipation No Action Aspirin 325 mg PO DIRECTED PRN PRN Reason: Pain Levothyroxine Sodium [Synthroid] 25 mcg PO SUTUTHSA Levothyroxine Sodium [Synthroid] 37.5 mcg PO MOWEFR Tylenol (Unknown Dose) 1 - 2 tab PO DIRECTED PRN PRN Reason: Pain Discharge Medication List Aspirin 325 mg PO DIRECTED PRN 01/29/20 [History] Levothyroxine Sodium [Synthroid] 25 mcg PO SUTUTHSA 01/29/20 [History] Levothyroxine Sodium [Synthroid] 37.5 mcg PO MOWEFR 01/29/20 [History] Tylenol (Unknown Dose) 1 - 2 tab PO DIRECTED PRN 01/29/20 [History] Aspirin 325 mg PO BID #60 tab 01/31/20 [Rx] HYDROcodone/APAP 5-325MG [[place] 5-325] 1 tab PO Q6HR PRN #30 tab 01/31/20 [Rx] Sennosides [Senokot] 2 tab PO DAILY PRN #60 tablet 01/31/20 [Rx] Follow up Appointment(s)/Referral(s): Jayme Celestin DO [Doctor of Osteopathic Medicine] - 02/14/20 2:00 pm Activity/Diet/Wound Care/Special Instructions: Weightbearing as tolerated with walker. Leave dressing intact. Dressing may be removed by home care nurse or by patient in 10 days. May shower with dressing on. Recommend use of compression stockings daily until follow up to help prevent swelling and blood clots. May remove at night before sleeping. Please follow-up with [facility] in 2 weeks and call with any questions or concerns, . Discharge Disposition: HOME WITH HOME HEALTH SERVICES
[2020-01-31] MEDS: ASPIRIN 325 MG TAB PO SCH (08:57)
[2020-01-31] MEDS ORDERED: MELOXICAM 7.5 MG TAB PO SCH (09:00)
[2020-02-01] MEDS ORDERED: LEVOTHYROXINE 25 MCG TAB PO SCH (06:30)
--- NOTE | 2020-02-01 08:02 | XR ---
EXAMINATION TYPE: XR Hip Limited RT DATE OF EXAM: 02/01/2020 Comparison: None Clinical History: 79-year-old female Status post hip surgery, assess surgical alignment Findings: Image shows placement of right total hip were requested. Acetabular cup and femoral stem components o f the prosthesis appear well seated without periprosthetic fracture. Alignment grossly anatomic. Mini mal violation of the inner cortical margin by one of the acetabular screw tips. Scattered soft tissue air related to recent operation. Impression: Uncomplicated postoperative appearance right total hip arthroplasty.
== END 2020-01-31 15:28 | disposition home health service (06) ==
LOC: OR 11:49 → 6PED 15:24 → OR 01-31 15:28
PROVIDERS: ATTEND Orthopaedic Surgery
DX: M16.11 Unilateral primary osteoarthritis, right hip (principal); H91.90 Unspecified hearing loss, unspecified ear; E78.5 Hyperlipidemia, unspecified; R26.81 Unsteadiness on feet; E03.9 Hypothyroidism, unspecified; I48.0 Paroxysmal atrial fibrillation; R32 Unspecified urinary incontinence; I10 Essential (primary) hypertension; M51.37 Other intervertebral disc degeneration, lumbosacral region; M81.0 Age-related osteoporosis without current pathological fracture; E78.00 Pure hypercholesterolemia, unspecified; E66.3 Overweight; I83.93 Asymptomatic varicose veins of bilateral lower extremities; I49.1 Atrial premature depolarization; N39.0 Urinary tract infection, site not specified; Z68.27 Body mass index [BMI] 27.0-27.9, adult; Z88.0 Allergy status to penicillin; Z91.018 Allergy to other foods; Z91.09 Other allergy status, other than to drugs and biological substances; Z79.899 Other long term (current) drug therapy; Z79.82 Long term (current) use of aspirin; Z79.1 Long term (current) use of non-steroidal anti-inflammatories (NSAID); Z79.890 Hormone replacement therapy; Z87.09 Personal history of other diseases of the respiratory system; Z97.3 Presence of spectacles and contact lenses; Z97.2 Presence of dental prosthetic device (complete) (partial); Z90.89 Acquired absence of other organs; Z96.653 Presence of artificial knee joint, bilateral; Z96.642 Presence of left artificial hip joint; Z98.1 Arthrodesis status; Z86.69 Personal history of other diseases of the nervous system and sense organs; Z98.890 Other specified postprocedural states; Z98.41 Cataract extraction status, right eye; Z98.42 Cataract extraction status, left eye; Z88.5 Allergy status to narcotic agent; Z88.2 Allergy status to sulfonamides; Z90.710 Acquired absence of both cervix and uterus; Z87.898 Personal history of other specified conditions; Z82.49 Family history of ischemic heart disease and other diseases of the circulatory system; Z80.3 Family history of malignant neoplasm of breast; Z80.42 Family history of malignant neoplasm of prostate; Z80.8 Family history of malignant neoplasm of other organs or systems; Z83.3 Family history of diabetes mellitus
CPT/HCPCS: 27130; 97110; 97161; 97535; 97165; 86891; 86900; 86901; 80048; 85025; 86850; 88300; 73501; P9022; C1776; J2250; J0171; J1644; J1100; J0690 ×3; J2405; J3010; J1885; J2795; J2370; J2704; J0735

== ENCOUNTER → 2023-10-09 | Outpatient (CLI) | payer MEDICARE ==
[2023-10-09 13:05] LABS: Basophils # (A) 0.07 X 10*3/uL (0.00-0.10); Basophils % (A) 0.9 %; Eosinophils # (A) 0.14 X 10*3/uL (0.04-0.35); Eosinophils % (A) 1.7 %; HCT 36.6 % (37.2-46.3); HGB 11.4 g/dL (12.0-15.0); Lymphocytes # (A) 1.79 X 10*3/uL (0.90-5.00); Lymphocytes % (A) 22.2 %; MCHC 31.1 g/dL (32.0-37.0); MCV 86.7 FL (80.0-97.0); Mean Platelet Volume 11.1 FL (9.5-12.2); Monocytes # (A) 0.66 X 10*3/uL (0.20-1.00); Monocytes % (A) 8.2 %; NRBC Per 100 WBC 0 X 10*3/uL (0.00-0.01); Neutrophils % (A) 66.8 %; Platelet Count 410 X 10*3/uL (140-440); RBC 4.22 X 10*6/uL (4.10-5.20); RDW 14.6 % (11.5-14.5); WBC 8.08 X 10*3/uL (4.50-10.00)
[2023-10-09 13:11] LABS: BUN/Creat Ratio 21.67 Ratio (12.00-20.00); Blood Urea Nitrogen 19.5 mg/dL (9.0-27.0); Calcium 9.9 mg/dL (8.7-10.3); Carbon Dioxide 24.5 mmol/L (21.6-31.8); Chloride 103 mmol/L (96-109); Glucose 95 mg/dL (70-110); Potassium 4.8 mmol/L (3.5-5.5); Sodium 138 mmol/L (135-145)
[2023-10-10 06:41] LABS: Appearance,Urine Clear (Clear); Bilirubin,Urine Negative (Negative); Blood,Urine Negative (Negative); Color,Urine Yellow (Yellow); Ketones,Urine Negative (Negative); Nitrite,Urine Negative (Negative); Specific Gravity,Urine 1.007 (1.001-1.030); Urobilinogen,Urine 0.2 E.U./DL
[2023-10-10 06:51] LABS: Bacteria,Urine 1+ (None Seen)
== END | disposition home or self-care (01) ==
LOC: LABPAT 09:00
PROVIDERS: ATTEND Urology
DX: N36.42 Intrinsic sphincter deficiency (ISD) (principal)
CPT/HCPCS: 80048; 81001; 85025; 87077; 87086; 87186